=== PATIENT | female | born 1990 | race Caucasian/White ===

== ENCOUNTER 2018-07-19 21:51 | Outpatient (CLI) | payer OTHER ==
[2018-07-19 22:05] VITALS: BP 114/81
[2018-07-19] MEDS ORDERED: SODIUM CHLORIDE FLUSH 0.9% 10 ML SYRINGE ONE (22:21)
[2018-07-19 22:35] LABS: BILIRUBIN,URINE NEGATIVE (NEGATIVE); GLUCOSE, URINE (UA) NEGATIVE (NEGATIVE); KETONES,URINE (UA) NEGATIVE (NEGATIVE); LEUKOCYTE ESTERASE, URINE NEGATIVE (NEGATIVE); NITRITE,URINE NEGATIVE (NEGATIVE); OCCULT BLOOD,URINE NEGATIVE (NEGATIVE); PH,URINE 6.5 PH (5.0-7.5); PROTEIN,URINE NEGATIVE (NEGATIVE); UROBILINOGEN,URINE 0.2 (NORMAL) E.U./dL (NORMAL)
[2018-07-19] MEDS ORDERED: ALBUTEROL NEB 2.5 MG/3 ML INH PRN (22:59)
[2018-07-19 23:05] LABS: BACTERIA,URINE None Seen /HPF (None Seen); CLARITY,URINE CLEAR (CLEAR); RBC,URINE None Seen /HPF (0-5); SQUAMOUS EPITHELIAL CELL,UR RARE Squamous (<= Few)
== END 2018-07-19 23:35 | disposition home or self-care (01) ==
LOC: WFO 21:51 → FBP 21:54 → WFO 23:35
PROVIDERS: ATTEND Obstetrics & Gynecology
DX: O99.513 Diseases of the respiratory system complicating pregnancy, third trimester (principal); J06.9 Acute upper respiratory infection, unspecified; J45.909 Unspecified asthma, uncomplicated; O99.89 Other specified diseases and conditions complicating pregnancy, childbirth and the puerperium; R10.9 Unspecified abdominal pain; Z3A.28 28 weeks gestation of pregnancy
CPT/HCPCS: 81001; 87210; 94150; 94640; 94664; 99213

== ENCOUNTER 2018-08-15 16:03 | Outpatient (CLI) | payer OTHER ==
[2018-08-15 15:14] LABS: MUDS CUTOFF CONCENTRATIONS CUTOFF CONC BELOW:
[2018-08-15 15:15] LABS: AMPHETAMINE SCREEN,URINE NEGATIVE (NEGATIVE); BENZODIAZEPINES SCREEN, URINE NEGATIVE (NEGATIVE); COCAINE SCREEN URINE NEGATIVE (NEGATIVE); METHADONE SCREEN, URINE NEGATIVE (NEGATIVE); METHAMPHETAMINES SCREEN, URINE NEGATIVE (NEGATIVE); OPIATE SCREEN, URINE POSITIVE (NEGATIVE); OXYCODONE SCREEN, URINE NEGATIVE (NEGATIVE); PROPOXYPHENE SCREEN, URINE NEGATIVE (NEGATIVE); TRICYCLIC ANTIDEPRESSANT,URINE NEGATIVE (NEGATIVE)
== END 2018-08-15 16:04 | disposition home or self-care (01) ==
LOC: LAB.R 16:03
PROVIDERS: ATTEND Registered Nurse
DX: Z36.9 Encounter for antenatal screening, unspecified (principal)
CPT/HCPCS: 80306; 87491; 87591

== ENCOUNTER 2018-09-12 11:50 | Outpatient (CLI) | payer OTHER | END 2018-09-12 11:51 | disposition home or self-care (01) | LOC: LAB.R 11:50 | PROVIDERS: ATTEND Registered Nurse | DX: Z36.85 Encounter for antenatal screening for Streptococcus B (principal) | CPT/HCPCS: 87081 ==

== ENCOUNTER 2018-10-10 07:50 | Inpatient (IN) | payer OTHER ==
[2018-10-10] MEDS ORDERED: SODIUM CHLORIDE FLUSH 0.9% 10 ML SYRINGE ONE (08:03)
[2018-10-10] MEDS ORDERED: SODIUM CHLORIDE FLUSH 0.9% 10 ML SYRINGE IVP PRN (08:07)
[2018-10-10] MEDS ORDERED: ONDANSETRON 4 MG/2 ML VIAL IVP PRN ×2 (08:07→22:20)
[2018-10-10 08:34] LABS: BASOPHILS % (AUTO) 0.4 %; EOSINOPHILS # (AUTO) 0.1 10^3/uL (0.0-0.7); EOSINOPHILS % (AUTO) 0.5 %; HGB - HEMOGLOBIN 11.5 g/dL (12.0-16.0); LYMPHOCYTES # (AUTO) 1.7 10^3/uL (1.5-3.5); LYMPHOCYTES % (AUTO) 15.4 %; MEAN CORPUSCULAR HGB CONC 34.3 g/dL (32.0-36.0); MEAN CORPUSCULAR VOLUME 87.4 fL (81.0-99.0); MEAN PLATELET VOLUME 7.5 fL (7.9-10.8); MONOCYTES # (AUTO) 0.6 10^3/uL (0.0-1.0); MONOCYTES % (AUTO) 5.4 %; NEUTROPHILS # (AUTO) 8.7 10^3/uL (1.5-6.6); NEUTROPHILS % (AUTO) 78.3 %; PLT - PLATELET COUNT 282 10^3/uL (130-450); RED BLOOD COUNT 3.84 10^6/uL (4.20-5.40); RED CELL DISTRIBUTION WIDTH 13.3 % (12.0-15.0); WHITE BLOOD COUNT 11.1 x10^3/uL (4.8-10.8)
[2018-10-10] MEDS ORDERED: LIDOCAINE 1% 50 ML MDV ONE (08:39)
[2018-10-10] MEDS ORDERED: miSOPROStol 200 MCG TABLET ONE (08:39)
[2018-10-10] MEDS ORDERED: MINERAL OIL LIGHT 10 ML MC ONE (08:40)
[2018-10-10] MEDS ORDERED: OXYTOCIN/SODIUM CHLORIDE 500 ML IV ONE (08:40)
[2018-10-10] MEDS: miSOPROStol 100 MCG TABLET BC SCH ×3 (08:59→18:47)
[2018-10-10] MEDS: LACTATED RINGERS 1,000 ML IV SCH ×3 (08:59→21:25)
[2018-10-10] MEDS: SODIUM CHLORIDE FLUSH 0.9% 10 ML SYRINGE IVP SCH ×2 (09:00→12:50)
[2018-10-10 10:49] LABS: MUDS CUTOFF CONCENTRATIONS CUTOFF CONC BELOW:
[2018-10-10 11:19] LABS: AMPHETAMINE SCREEN,URINE NEGATIVE (NEGATIVE); BENZODIAZEPINES SCREEN, URINE NEGATIVE (NEGATIVE); COCAINE SCREEN URINE NEGATIVE (NEGATIVE); METHADONE SCREEN, URINE NEGATIVE (NEGATIVE); METHAMPHETAMINES SCREEN, URINE NEGATIVE (NEGATIVE); OPIATE SCREEN, URINE NEGATIVE (NEGATIVE); OXYCODONE SCREEN, URINE NEGATIVE (NEGATIVE); PROPOXYPHENE SCREEN, URINE NEGATIVE (NEGATIVE); TRICYCLIC ANTIDEPRESSANT,URINE NEGATIVE (NEGATIVE)
--- NOTE | 2018-10-10 17:05 | HISTORY & PHYSICAL EXAMINATION ---
Admit History - Visit Reason Visit Reason: Other - : 2 Parity: 1 Premature: 0 Ectopic: 0 : 0 Care: positive: WANDA CHRISTIE-Caity Risk/History: positive: Gestational diabetes Complications This : positive: None Smoking Status: Never smoker - Mother's Labs Mother's Blood Type: positive: O Mother's RH: positive: Positive GBS: positive: Group B Step Negative Rubella Status: positive: Immune Meds/Allgy - Allergies Allergies/Adverse Reactions: Allergies Allergy/AdvReac Type Severity Reaction Status Date / Time No Known Drug Allergies Allergy Verified 07/19/18 23:04 Review of Systems - Constitutional Constitutional: reports: Fatigue, Fever, Chills, Malaise, Weakness - Eyes Eyes: reports: Blurred vision, Spots in vision - Cardiovascular Cariovascular: reports: Irregular heart rate, Palpitations, Chest pain, Edema - Respiratory Respiratory: reports: Cough, Wheezing, SOB at rest - Gastrointestinal Gastrointestinal: reports: Abdominal pain, Constipation, Diarrhea, Change in bowel habits, Rectal bleeding, Nausea, Vomiting - Genitourinary Genitourinary: reports: Dysuria, Frequency - Integumentary Integumentary: reports: Rash, Pruritis - Neurological Neurological: reports: Headache, Dizziness - Psychiatric Psychiatric: reports: Depression, Anxiety Physical - Abdominal Exam Vital Signs: Temp Pulse Resp BP Pulse Ox 37.1 C 97 18 113/72 98 10/10/18 08:23 10/10/18 08:23 10/10/18 08:23 10/10/18 08:23 10/10/18 08:23 Contraction Intensity: positive: Other Uterine Resting Tone: positive: Soft - Monitoring Heart Rate Baseline: 150 Strip Review: positive: Category I - Presentation Presentation: positive: Vertex - Vaginal Exam Membranes: positive: Membranes intact Dilation (in cm): 2 Effacement (%): 60 Station: positive: -3 Cervical Position: positive: Posterior - Speculum Exam Speculum Exam Performed: positive: No Plan for Labor - Plan For Labor I expect patient to be DC'd or transferred within 96 hours.: Yes Plan for Labor: HPI: This 27yo @ 39.6 by L=11.6 who presents today who presents for logistic induction of labor at 39.6wks gestation. Upon evaluation she was noted to be 2/60/-3, posterior, soft, vertex and this is unchanged from her office examination. She was placed in observation for pre-induction cervical ripening. She reports +FM and intermittent contractions. She denies VB or Lof. Her has been complicated only by positive opioids on UTOX 08/15/2018. Pt denies opioid use. Dating criteria: 1.) LMP 01/04/2018 2.) First ultrasound 03/08/18 @ 11w6d 3.) Serial exams agree OB History: G1: 10/26/16, vaginal delivery, complicated by A1GDM and spotaneously delivered a viable male weighing 3912gm. G2: Current TELE[employer]ONE [employer]ATION REPA[employer]ER History: Regular cycle, menses 27-28 days STD's - none [employer]LEPH[employer] REPA[employer]ER surgeries - none Abnormal paps and treatment: no hx abnormal. last pap 07/31/17WNL PMHx: Eczema Surgical Hx: none Family hx: none Social hx: to [place]. Student, unemployed, some college. Hx tobacco use - quit 02/2018 after 8 years of use. Meds: PNV, TUMs, Zantac 150mg PO bid Allergies: NKDA Physical Exam: A&O x4 Mood is good Heart RRR w/o M/G/R Lungs CTAB Bilateral LE's no edema FHR baseline 150s, moderate variability, +accels, no decels. SVE 2/60/-3, vertex, posterior, soft. BOW intact EFW 3400g labs: 07/08/2018 Early 1 hour GTT 109 Blood type O pos, Antibody neg Hgb 14.3, Hct 41.3, PLT 246 Rubella immune HIV non-reactive GC/CT neg Hep B neg Hep C neg Treponema non-reactive UTOX - opioids: Pt declined illicit use Genetic testing-WNL Tdap 08/12/2018 Influenza 08/12/2018 28wk labs: Hgb 12.4; PLT 229 1 hour GTT 165 3 hour GTT 89/138/118 GBS negative Ultrasounds: 05/23/2018 FAS. Anterior placenta, no previa. Cervix 4.1cm. WNL. 3VC. Size c/w dating. Assessment: 27yo @ 39.6wks gestation by L=11.6wk U/S Pre-induction cervical ripening with misoprostol q 4 hours Hx shoulder dystocia Desires unmedicated delivery Plan: Continuous monitoring 50mcg BC misoprostol q 4 hours for pre-induction cervical ripening Encouraged ambulation and position changes Anticipate spontaneous vaginal delivery
--- NOTE | 2018-10-10 18:29 | PROVIDER PROGRESS NOTE ---
Subjective - Subjective Subjective: S: Pt sitting in bed and breathing through contractions. Her son was just diagnosed with RSV in the ED and she is very emotional and struggling with how to manage her labor and her son at home. is planning to take baby home and get him settled while Consuelo's mom stays here with her and then they plan to switch. O: BP 113/72, HR 97, RR 18 Contractions palpate moderate every 2-4 minutes lasting 60-90 seconds. FHR baseline 150s, moderate variability, + accels, no decels SVE 3-4/75/-1, vertex, soft. posterior. AROM copious amount of clear fluid A: 27yo @ 39.6wks gestation by L=11.6wk U/S GBS neg Pre-induction cervical ripening with misoprostol P: Continuous monitoring. Monitor contraction pattern x 45 min then administer 25mcg misoprostol BC x 1 Consider pitocin administration 4 hours after next dosage of misoprostol Pt verbalized understanding and agrees to above plan. She denies further questions or concerns at this time. Objective - Vital Signs/Intake & Output Intake & Output: Intake & Output 10/07/18 10/08/18 10/09/18 10/10/18 23:59 23:59 23:59 23:59 Intake Total 582.75 Balance 582.75 - Lab Results Fish Bones: 10/10/18 08:20 Other Labs: Lab Results x24hrs 10/10/18 10/10/18 Range/Units 10:10 08:20 WBC 11.1 H (4.8-10.8) x10^3/uL RBC 3.84 L (4.20-5.40) 10^6/uL Hgb 11.5 L (12.0-16.0) g/dL Hct 33.6 L (37.0-47.0) % MCV 87.4 (81.0-99.0) fL MCH 30.0 (27.0-31.0) pg MCHC 34.3 (32.0-36.0) g/dL RDW 13.3 (12.0-15.0) % Plt Count 282 (130-450) 10^3/uL MPV 7.5 L (7.9-10.8) fL Neut # (Auto) 8.7 H (1.5-6.6) 10^3/uL Lymph # (Auto) 1.7 (1.5-3.5) 10^3/uL [place] # (Auto) 0.6 (0.0-1.0) 10^3/uL Eos # (Auto) 0.1 (0.0-0.7) 10^3/uL Baso # (Auto) 0.0 (0.0-0.1) 10^3/uL Absolute Nucleated RBC 0.00 x10^3/uL Nucleated RBC % 0.0 /100WBC Urine Opiates Screen NEGATIVE (NEGATIVE) Ur Oxycodone Screen NEGATIVE (NEGATIVE) Urine Methadone Screen NEGATIVE (NEGATIVE) Ur Propoxyphene Screen NEGATIVE (NEGATIVE) Ur Barbiturates Screen NEGATIVE (NEGATIVE) Ur Tricyclics Screen NEGATIVE (NEGATIVE) Ur Phencyclidine Scrn NEGATIVE (NEGATIVE) Ur Amphetamine Screen NEGATIVE (NEGATIVE) U Methamphetamines Scrn NEGATIVE (NEGATIVE) U Benzodiazepines Scrn NEGATIVE (NEGATIVE) Urine Cocaine Screen NEGATIVE (NEGATIVE) U Cannabinoids Screen NEGATIVE (NEGATIVE)
[2018-10-10] MEDS ORDERED: miSOPROStol 100 MCG TABLET BC SCH (19:00)
[2018-10-10] MEDS ORDERED: fent/BUPIV 2 MCG/0.125% 250 ML EP ONE (20:45)
--- NOTE | 2018-10-10 21:25 | ANESTHESIA ---
Pre-Anesthesia VS, & Labs - Diagnosis term - Procedure labor epidural Vital Signs: Temp Pulse Resp BP Pulse Ox 37.1 C 97 18 113/72 98 10/10/18 08:23 10/10/18 08:23 10/10/18 08:23 18 08:23 10/10/18 08:23 Height 5 ft 7 in Weight (kg) 79.832 kg - NPO Other (clears from now on) - Is Patient ?: Yes - Lab Results Current Lab Results: Laboratory Tests 10/10/18 10:10: Urine Opiates Screen NEGATIVE, Ur Oxycodone Screen NEGATIVE, Urine Methadone Screen NEGATIVE, Ur Propoxyphene Screen NEGATIVE, Ur Barbiturates Screen NEGATIVE, Ur Tricyclics Screen NEGATIVE, Ur Phencyclidine Scrn NEGATIVE, Ur Amphetamine Screen NEGATIVE, U Methamphetamines Scrn NEGATIVE, U Benzodiazepines Scrn NEGATIVE, Urine Cocaine Screen NEGATIVE, U Cannabinoids Screen NEGATIVE 10/10/18 08:20: WBC 11.1 H, RBC 3.84 L, Hgb 11.5 L, Hct 33.6 L, MCV 87.4, MCH 30.0, MCHC 34.3, RDW 13.3, Plt Count 282, MPV 7.5 L, Neut # (Auto) 8.7 H, Lymph # (Auto) 1.7, [place] # (Auto) 0.6, Eos # (Auto) 0.1, Baso # (Auto) 0.0, Absolute Nucleated RBC 0.00, Nucleated RBC % 0.0 Fish Bones: 10/10/18 08:20 Home Medications and Allergies Active Medications Lactated Ringer's (Lr) 1,000 mls @ 100 mls/hr IV .Q10H [facility] Last Infusion: 10/10/18 12:50 Dose: 0 mls/hr Misoprostol (Cytotec) 25 mcg BC Q4H [facility] Last Admin: 10/10/18 18:56 Dose: 25 mcg Ondansetron HCl (Zofran Inj) 4 mg IVP Q4HR PRN PRN Reason: Nausea / Vomiting Sodium Chloride (Normal Saline Flush 0.9%) 10 ml IVP 0100,0900,1700 [facility] Last Admin: 10/10/18 12:50 Dose: 10 ml Sodium Chloride (Normal Saline Flush 0.9%) 10 ml IVP PRN PRN PRN Reason: NEEDED PER PROVIDER ORDERS Allergies/Adverse Reactions: Allergies Allergy/AdvReac Type Severity Reaction Status Date / Time No Known Drug Allergies Allergy Verified 07/19/18 23:04 Anes History & Medical History - Anesthetic History Anesthesia Complications: reports: No previous complications - Medical History Smoking Status: Never smoker - Obstetrical History : 2 Parity: 1 Events: positive: Gestational diabetes Complications: positive: None Exam General: Alert Dental: WNL Mouth Opening: Greater than 4 Fingerbreadths Neck Mobility: Normal Mallampati classification: II Thyromental Distance: greater than 6 cm Plan Anesthesia Type: Epidural Consent for Procedure(s) Verified and Reviewed: Yes Code Status: Attempt Resuscitation ASA classification: 2-Mild systemic disease Is this case an emergency?: No
[2018-10-10] MEDS ORDERED: fentaNYL 100 MCG/2 ML VIAL ONE (21:30)
[2018-10-10] MEDS ORDERED: ROPIVACAINE 0.2% PF 20 ML AMPULE ONE (21:30)
[2018-10-10] MEDS ORDERED: METOCLOPRAMIDE 10 MG/2 ML VIAL IVP PRN (22:20)
[2018-10-10] MEDS ORDERED: LACTATED RINGERS 500 ML IV ONE (22:20)
[2018-10-10] MEDS ORDERED: ePHEDrine 50 MG/ML VIAL IVP PRN (22:20)
[2018-10-10] MEDS ORDERED: NALBUPHINE 10 MG/ML AMP IVP PRN (22:20)
[2018-10-10] MEDS ORDERED: fent/BUPIV 2 MCG/0.125% 250 ML EP PRN (22:20)
[2018-10-10] MEDS ORDERED: diphenhydrAMINE INJ 50 MG/ML VIAL IVP PRN (22:20)
[2018-10-10] MEDS ORDERED: NALOXONE 0.4 MG/ML VIAL IVP PRN (22:20)
[2018-10-11] MEDS: CALCIUM CARBONATE CHEW 500 MG TABLET PO PRN ×2 (00:11→01:05)
[2018-10-11] MEDS: LACTATED RINGERS 1,000 ML IV SCH (01:02)
--- NOTE | 2018-10-11 01:06 | PROVIDER PROGRESS NOTE ---
Objective - Vital Signs/Intake & Output Intake & Output: Intake & Output 10/08/18 10/09/18 10/10/18 10/11/18 23:59 23:59 23:59 23:59 Intake Total 582.75 361.667 Output Total 1 Balance 581.75 361.667 - Lab Results Fish Bones: 10/10/18 08:20 Other Labs: Lab Results x24hrs 10/10/18 10/10/18 Range/Units 10:10 08:20 WBC 11.1 H (4.8-10.8) x10^3/uL RBC 3.84 L (4.20-5.40) 10^6/uL Hgb 11.5 L (12.0-16.0) g/dL Hct 33.6 L (37.0-47.0) % MCV 87.4 (81.0-99.0) fL MCH 30.0 (27.0-31.0) pg MCHC 34.3 (32.0-36.0) g/dL RDW 13.3 (12.0-15.0) % Plt Count 282 (130-450) 10^3/uL MPV 7.5 L (7.9-10.8) fL Neut # (Auto) 8.7 H (1.5-6.6) 10^3/uL Lymph # (Auto) 1.7 (1.5-3.5) 10^3/uL [place] # (Auto) 0.6 (0.0-1.0) 10^3/uL Eos # (Auto) 0.1 (0.0-0.7) 10^3/uL Baso # (Auto) 0.0 (0.0-0.1) 10^3/uL Absolute Nucleated RBC 0.00 x10^3/uL Nucleated RBC % 0.0 /100WBC Urine Opiates Screen NEGATIVE (NEGATIVE) Ur Oxycodone Screen NEGATIVE (NEGATIVE) Urine Methadone Screen NEGATIVE (NEGATIVE) Ur Propoxyphene Screen NEGATIVE (NEGATIVE) Ur Barbiturates Screen NEGATIVE (NEGATIVE) Ur Tricyclics Screen NEGATIVE (NEGATIVE) Ur Phencyclidine Scrn NEGATIVE (NEGATIVE) Ur Amphetamine Screen NEGATIVE (NEGATIVE) U Methamphetamines Scrn NEGATIVE (NEGATIVE) U Benzodiazepines Scrn NEGATIVE (NEGATIVE) Urine Cocaine Screen NEGATIVE (NEGATIVE) U Cannabinoids Screen NEGATIVE (NEGATIVE)
--- NOTE | 2018-10-11 01:15 | PROVIDER PROGRESS NOTE ---
Labor Progress Note - Uterine Monitoring Uterine Monitoring Mode: positive: External toco Contraction Frequency (min/apart): 2-4 Contraction Intensity: positive: Moderate to strong Uterine Resting Tone: positive: Soft - Monitoring Monitor Mode: positive: External ultrasound Heart Rate Baseline: 150 Heart Rate Variability: positive: Moderate (6-25 bmp) Accelerations: positive: Present, 15x15 Decelerations: positive: Early, Late, Variable, Recurrent (>50% x20 min) Strip Review: positive: Category II - Vaginal Exam Dilation (in cm): 8 Effacement (%): 100 Station: 1 Cervical Position: Anterior - Labor Progress Note Labor Progress Note/Additional Text: S: Patient sitting comfortably in bed with epidural. Mother supportive at the bedside. Pt states she is feeling much better emotionally now that she is comfortable with the epidural. Her is home with Dakota and plans to stay with him while her mom is here with Consuelo for support during delivery. O: SVE 8/100/+1, vertex, anterior. FHR baseline 150s, moderate variability. Few accels 10x10 which appear compensatory following a deceleration. Occasional variable decelerations. Recurrent early decelerations. Intermittent late deceleration with emory to 120s. Maintained moderate variability throughout. Pt was rotated to her left side and IV fluid bolus administered and there have not been further late decelerations since this intervention. Continues to have recurrent early decelerations and occasional variable decelerations. Contractions palpate strong every 2-4 minutes lasting 70-110 seconds in duration with soft resting tone. Last dose of misoprostol 25mcg BC administered at 1900 on 10/10/2018. A: 27yo @ 40.0wks gestation by L=11.6wk U/S FHR Category II - overall reassuring GBS negative Spontaneous active labor AROM x 7 hours P: Continuous monitoring Epidural for pain management Continue expectant management Pitts catheter placed Fluid bolus PRN - current maintenance rate running TUMs for reflux per patient request Benadryl for itching per patient request Reviewed plan of care and status with patient and her mother. They both verbalized understanding and agree to above plan. She denies further questions or concerns at this time. Repeat SVE in 2 hours or early PRN Anticipate spontaneous vaginal delivery.
[2018-10-11] MEDS ORDERED: WITCH HAZEL/GLYCERIN 1 EACH MED..PAD TOP PRN (01:57)
[2018-10-11] MEDS ORDERED: HYDROCORTISONE/PRAMOXINE 10 GM PR PRN (01:57)
--- NOTE | 2018-10-11 02:11 | DELIVERY NOTE ---
Delivery Note - Labor Labor: positive: Induced by ARM, Other - Delivery Method Delivery Method: positive: Spontaneous vaginal delivery - Presentation Presentation: positive: Vertex, JULIO - left occiput anterior - Nuchal Cord Nuchal Cord: positive: Present, Reduced - Amniotic Fluid Description Amniotic Fluid Description: positive: Clear - Episiotomy Type Episiotomy Type: positive: None - Laceration Laceration: positive: None - Delivery Outcome Delivery Outcome: positive: Livebirth - [place] : positive: Placed in direct skin contact with mother, Bulb syringe, Stimulated, Warmed, [place] used [place] sex: positive: Male - Cord Cord: positive: 3 vessels - Placenta Placenta: positive: Intact, Spontaneous - Estimated Blood Loss Estimated Blood Loss (in cc): 100 - Post Delivery Events Post Delivery Events: positive: No post delivery events - Delivery Comments (Free Text/Narrative) Delivery Comments (Free Text/Narrative): Labor: This 27yo @ 39.6wks gestation by L=11.6wk U/S presented on 10/10/2018 at approximately 0800 for pre-induction cervical ripening in anticipation for logistic induction of labor. Her cervix was 2/60/-3, posterior, vertex, and soft and she was not experiencing uterine contractions. She received 1 dosage of 50mcg BC misoprostol and 1 dose of 25mcg BC misoprostol at which time she entered spontaneous, active labor. AROM occurred at 1808 and was noted to be a copious amount of clear fluid. Epidural placed upon maternal request. FHR pattern demonstrated baseline 150s with moderate variability throughout her labor course. Category II heart pattern secondary to intermittent variable decelerations, occasional late decelerations, and recurrent early decelerations. IV fluid bolus and patient rotation in bed resulted in improved FHR pattern and cessation of late decelerations. Pt maintained moderate variability throughout and status was overall reassuring. Patient progressed to c/c/+2 at 0114 with increased vaginal and rectal pressure. : Normal of a viable male infant. Tight nuchal cord x 1 reduced. 's were 6/8 at 1 and 5 min respectively on 10/11/2018 at 0128. The was placed on maternal abdomen, stimulated, dried, and placed skin to skin. Blow by O2 provided via bedside wall unit while remained on maternal abdomen. The umbilical cord was doubly clamped by CNM and cut by patient's mother. Cord blood was obtained. Placenta delivered spontaneously and intact at 0133. 3VC. Pitocin administered via IV for hemostasis. EBL 100mL. Fourth stage: Uterine fundus firm and there is no excessive bleeding. The perineum, vagina, and cervix were inspected and found to be intact. initiated. Family bonding well. Both mother and baby were left in stable condition.
[2018-10-11] MEDS: ACETAMINOPHEN 500 MG TABLET PO SCH ×4 (04:15→22:30)
[2018-10-11] MEDS: IBUPROFEN 800 MG TABLET PO SCH ×5 (04:16→22:30)
[2018-10-11] MEDS: DOCUSATE SODIUM 100 MG CAPSULE PO SCH ×2 (09:02→20:29)
--- NOTE | 2018-10-11 13:53 | PROVIDER PROGRESS NOTE ---
Subjective - Subjective Subjective: S: Bonding well with baby. without difficulty. Pain well controlled with oral medications. She is questioning whether or not she wants to be discharged home tomorrow or wait the 48 hours since she has a sick baby at home. She is nervous to take the new baby home if he is sick. Bleeding decreased and is light. Tired but denies concerns. supportive at the bedside. O: BP 123/77, RR16, T 36.8, HR 81. Heart RRR w/o M/G/R, lungs CTAB, abdomen soft and nontender with fundus firm at U-1. Bilateral LE's no edema. A: 27yo -->P2 s/p TSVD of viable male infant over intact perineum P: Continue routine care and medications. Evaluate for discharge home tomorrow. Pt and both verbalized understanding and agree to above plan. They deny further questions or concerns at this time. Objective - Vital Signs/Intake & Output Vital Signs: Vital Signs x48h Temp Pulse Resp BP Pulse Ox 10/11/18 12:00 36.8 C 81 16 123/77 99 10/11/18 08:15 37.0 C 74 74 H 115/83 H 100 Intake & Output: Intake & Output 10/08/18 10/09/18 10/10/18 10/11/18 23:59 23:59 23:59 23:59 Intake Total 582.75 361.667 Output Total 1 975 Balance 581.75 -613.333 - Lab Results Fish Bones: 10/10/18 08:20
--- NOTE | 2018-10-11 15:54 | ANESTHESIA POST OP EVALUATION ---
Anesthesia Post Eval - Post Anesthesia Eval CV Function Including HR & BP: positive: Stable : : : Pain Control: positive: Adequate Nausea & Vomiting: positive: Negative : Mental Status: positive: Appropriate Anesthesia Complications: positive: None - Other Details/Therapies Other Details/Therapies: Patient reports she had good pain control with epidural. Denies and headache or residual block.
[2018-10-12] MEDS: IBUPROFEN 800 MG TABLET PO SCH ×2 (04:36→10:44)
[2018-10-12] MEDS: ACETAMINOPHEN 500 MG TABLET PO SCH (07:50)
[2018-10-12 08:11] VITALS: BP 119/81
--- NOTE | 2018-10-12 09:56 | Discharge Plan ---
Discharge Plan Disposition: 01 Home, Self Care Condition: Good Diet: Regular Activity Restrictions: No Restrictions Shower Restrictions: No Driving Restrictions: No No Smoking: If you smoke, Please STOP! Call for help. Follow-up with: Barbara Irby CNM, ARNP [Provider Admit Priv/Credential] -
--- NOTE | 2018-10-12 10:00 | PROVIDER PROGRESS NOTE ---
Subjective - Subjective Subjective: FINAL PROGRESS NOTE: S: Bonding well with baby. without difficulty. She has a strong desire to go home today. She is feeling tired but not overly so. Denies pain. Bleeding decreasing and is light. No BM yet which she has been anticipating. O: BP 117/72, HR 83, RR 17, T 36.7 Heart RRR w/o M/G/R, lungs CTAB, abdomen soft and nontender with fundus firm at U-2, perineum intact without edema. Bilateral LE's no edema. Breasts nontender and nipples intact without cracking, blisters, or bleeding. Mood is relatively good considering her situational angst secondary to her son at home having pneumonia. A: 27yo -->P2 PPD#1 s/p TSVD of viable male Perineum intact - no laceration P: Discharge home today on PPD#1. Reviewed warning s/sx and when to present. Advised OTC ibuprofen 800mg q 8 hours PRN pain. Advised colace 100mg PO bid-tid PRN constipation. Advised continuation of PNV while . Intends to f/u at [facility] in 1 week for support visit, and in 3 weeks for routine pp visit. She verbalized understanding and agrees to above plan. She denies further questions or concerns today. Objective - Vital Signs/Intake & Output Vital Signs: Vital Signs x48h Temp Pulse Resp BP Pulse Ox 10/12/18 08:10 37.2 C 79 16 119/81 H 100 10/12/18 04:09 36.7 C 83 17 117/72 98 Intake & Output: Intake & Output 10/09/18 10/10/18 10/11/18 10/12/18 23:59 23:59 23:59 23:59 Intake Total 582.75 361.667 500 Output Total 1 975 Balance 581.75 -613.333 500 - Lab Results Fish Bones: 10/10/18 08:20
[2018-10-12] MEDS: DOCUSATE SODIUM 100 MG CAPSULE PO SCH (10:44)
--- NOTE | 2018-10-12 14:19 | Labor Flowsheet ---
Labor Flowsheet Datetime Report Generated by CPN: 10/12/2018 14:18 Datetime: 10/12/2018 07:55 VITAL SIGNS NBP Sys/Deedee/Mean (mmHg): 119 : 81 : 89 Pulse: 80 LaborFlag: Labor Datetime: 10/12/2018 04:09 SpO2 (%): 99 Datetime: 10/11/2018 01:28 UTERINE ACTIVITY Monitor Mode: External Frequency (min): 2-3 Quality: Strong Duration (sec): 90-110 Pattern: Normal: <= 5 Contractions in 10 Minutes Resting Tone (Palpate): Relaxed ASSESSMENT A Monitor Mode: External US FHR Baseline Rate : 150 Variability: Moderate 6-25 bpm Accelerations: 15X15 Datetime: 10/11/2018 01:25 Monitor Interventions for FHR: Ultrasound Adjusted Comments: poor tracing d/t head Datetime: 10/11/2018 01:22 STAGE 2 Pushing: Coached on Pushing Pushing Position: Pushing with Contractions; Pushing Lithotomy Pushing Progress: Descent with Pushing Datetime: 10/11/2018 01:20 I/O Interventions: Pitts Discontinued Datetime: 10/11/2018 01:16 COMMUNICATION Communication: Provider at Bedside Datetime: 10/11/2018 01:15 Decelerations: Prolonged Category: Category II Datetime: 10/11/2018 01:14 VAGINAL EXAM Dilatation (cm): 10.0 Effacement (%): 100 Station: 2 Exam by: C.Lolisinger, RN Datetime: 10/11/2018 01:10 Temperature (C): 36.9 Datetime: 10/11/2018 01:00 TEACHING Instructional Method: Verbal Plan of Care: Plan of Care Discussed Labor/Induction: Pushing Methods Datetime: 10/11/2018 00:30 Provider Notified (Name): Barbara Surekha Communication Comments: provider reviewed strip Datetime: 10/11/2018 00:26 PAIN Pain Scale: 0 Pain Presence: None/Denies Pain Type: N/A Datetime: 10/11/2018 00:11 Medication Comments: tums Datetime: 10/10/2018 23:45 Actions for Decelerations: IV Bolus Datetime: 10/10/2018 23:25 PATIENT CARE IV/Blood Work: IV Bolus Started Patient Position/Activity: Left Lateral; Left Tilt Datetime: 10/10/2018 22:37 MEDICATIONS Antiemetics/Antacids: Zofran (mg) @ Datetime: 10/10/2018 22:34 Anesthesia Level Check: T6- Xyphoid Datetime: 10/10/2018 22:33 Respirations: 16 Datetime: 10/10/2018 22:08 Vaginal Exam Comments: pt having increased pressure Datetime: 10/10/2018 22:00 Pain Management: Epidural Datetime: 10/10/2018 21:30 Anesthesia Comments: fentanyl administered via epidural Datetime: 10/10/2018 21:19 Epidural Procedure: Test Dose Datetime: 10/10/2018 21:10 PROCEDURE TIME OUT Procedure Verify: Correct Patient Identity; Correct Side and Site are Marked; Accurate Procedure Co nsent Form; Agreement on Procedure to be Done; Correct Patient Position; Safety Precautions Based on Patient History or Medication Use ANESTHESIA Epidural Positioning: Sitting Datetime: 10/10/2018 21:00 Pain Assessment Comments: awaiting epidural Datetime: 10/10/2018 20:14 Patient Care Comments: peanut ball between legs Datetime: 10/10/2018 20:00 Monitor Interventions for UA: [place] Adjusted Cervix, Position: Posterior MATERNAL ASSESSMENT Level of Consciousness: Fully Conscious Breath Sounds, Left: Clear and Equal Breath Sounds, Right: Clear and Equal Nausea/Vomiting: Hx of Nausea/Vomiting Datetime: 10/10/2018 19:48 Unit Routine: Unit Personnel Related: Activity and Rest Datetime: 10/10/2018 19:47 Pain Location: Perineum Pain Relief Measures: Comfort Measures Pain Coping: Breathing Through Contractions; Crying Datetime: 10/10/2018 19:02 Cervical Ripening Agents: Cytotec @ 25 Datetime: 10/10/2018 18:08 Membranes Rupture Method: Artificial Amniotic Fluid Color: Clear Amniotic Fluid Amount: Copious Amniotic Fluid Odor: None Datetime: 10/10/2018 18:07 Membrane Status: Bulging Cervix, Consistency: Soft Datetime: 10/10/2018 18:03 Stage of : Labor Temperature Route: Oral Datetime: 10/10/2018 17:29 Contraction Comments: unable to determine contraction pattern due to patient position while in tub Datetime: 10/10/2018 16:30 FHR Baseline Changes: No Baseline Change Datetime: 10/10/2018 14:15 Notification Reason: Status Update; Status; Labor Status; Uterine Activity; Pain Datetime: 10/10/2018 13:00 Oxygen Method: Room Air
--- NOTE | 2018-10-17 22:32 | DISCHARGE SUMMARY ---
Physician: DAWIT Santamaria DATE OF ADMISSION: 10/10/2018 DATE OF DISCHARGE: 10/12/2018 DIAGNOSES ON ADMISSION 1. A 27-year-old G2, P1-0-0-1 at 39.6 weeks' gestation by first trimester ultrasound. 2. Preinduction cervical ripening with misoprostol. 3. History of shoulder dystocia. DIAGNOSES ON DISCHARGE 1. A 27-year-old G2, P2-0-0-2, status post spontaneous vaginal delivery on 10/11/2018. 2. Normal recovery. 3. . BRIEF HISTORY: Consuelo is a patient of [facility] who presented on 10/10/2018 for preinduction cervical ripening with 50 mcg buccal misoprostol q.4 hours. Her has been complicated only by positive opioids on U-tox 08/15/2018. The patient denies opioid use. Her U-tox upon arrival was negative. She has a history of one term vaginal delivery complicated by A1GDM and spontaneous vaginal delivery of a male weighing 3912 gram and patient reported 30-second shoulder dystocia. She received 1 dosage of 50 mcg buccal misoprostol and 1 dose of 25 mcg buccal misoprostol at which time she entered spontaneous active labor. AROM occurred at 1808 and was noted to be a copious amount of clear fluid. Epidural placed upon maternal request. heart rate demonstrated category II throughout but overall, was reassuring. The patient progressed to complete/complete/+2 at 0114. Spontaneous vaginal delivery of a viable male with a tight nuchal cord, which was reduced without difficulty. Apgars were 6 and 8 at 1 and 5 minutes, respectively on 10/11/2018 at 0128. EBL 100 mL. The perineum, vagina and cervix were inspected and found to be intact. She has been doing well in her course. She is ambulating and tolerating a regular diet. She is without difficulty. Her bleeding has decreased since delivery and her lochia is normal. She is urinating without pain or difficulty. She will be discharged home today on day #1 with instructions to continue p.o. ibuprofen for pain management. She was encouraged to continue her vitamins while . Reviewed warning signs and symptoms and when to present including if she experiences worsening fevers, chills, abdominal pain, increased vaginal bleeding or foul smelling vaginal lochia. TD: 10/17/2018 14:37 MTDD
== END 2018-10-12 12:00 | disposition home or self-care (01) | DRG 807 ==
LOC: WFO 07:50 → FBP 07:51 → WFO 08:06 → UNDOADMOB 08:07 → FBP 08:07 → OBSVTOIN 14:08 → INTOOBSV 14:08 → OBSVTOIN 18:00 → INTOOBSV 18:00 → OBSVTOIN 10-11 14:03 → UNDODISIN 10-12 12:00
PROVIDERS: ADMIT Nurse Practitioner Obstetrics & Gynecology; ATTEND Nurse Practitioner Obstetrics & Gynecology
PROC: 10907ZC Drainage of Amniotic Fluid, Therapeutic from Products of Conception, Via Natural or Artificial Opening (ICD-10-PCS; 2018-10-10)
PROC: 10E0XZZ Delivery of Products of Conception, External Approach (ICD-10-PCS; principal; 2018-10-11)
DX: O76 Abnormality in fetal heart rate and rhythm complicating labor and delivery (principal); Z37.0 Single live birth; O99.62 Diseases of the digestive system complicating childbirth; K21.9 Gastro-esophageal reflux disease without esophagitis; O69.81X0 Labor and delivery complicated by cord around neck, without compression, not applicable or unspecified; Z3A.39 39 weeks gestation of pregnancy; Z86.32 Personal history of gestational diabetes; Z87.898 Personal history of other specified conditions
CPT/HCPCS: 80306; 85025; 96360; 96361